=== PATIENT | female | born 2000 | race African-American/Black ===

== ENCOUNTER 2025-07-10 13:35 | Emergency (ER) | payer MEDICAID ==
[~2025-07-10] VITALS: Ht 160 cm; Wt 68.0 kg
[2025-07-10 14:06] VITALS: O2SAT 100
[2025-07-10 14:27] LABS: BASOPHILS % 0.7 % (0.0-2.0); EOSINOPHILS % 1.5 % (0.0-5.0); HEMATOCRIT. 35.6 % (36.0-48.0); HEMOGLOBIN. 11.8 g/dL (12.0-16.0); LYMPHOCYTES % 34.6 % (20.0-50.0); MEAN PLATELET VOLUME 7.3 fl (7.4-10.4); MONOCYTES % 7.1 % (2.0-8.0); NEUTROPHILS % 56.1 % (40.0-76.0); PLATELET 340 x1000/uL (130-400); RED BLOOD CELL COUNT 3.97 mill/uL (4.2-5.4); RED CELL DISTRIBUTION WIDTH 13.2 % (11.6-14.6)
[2025-07-10 14:42] LABS: CREATININE 0.7 mg/dL (0.6-1.0); HCG SCREEN POSITIVE
[2025-07-10 14:43] LABS: UREA NITROGEN BLOOD 6 mg/dL (9-23)
[2025-07-10 14:55] LABS: INR 1.0
[2025-07-10 19:17] VITALS: BP 122/77; PULSE 74; RESP 14; TEMP 36.8; O2SAT 100
== END 2025-07-10 19:23 | disposition home or self-care (01) ==
LOC: ER 13:35
DX: O46.91 Antepartum hemorrhage, unspecified, first trimester (principal); O00.90 Unspecified ectopic pregnancy without intrauterine pregnancy; Z3A.01 Less than 8 weeks gestation of pregnancy
CPT/HCPCS: 36415; 76801; 80048; 84702; 84703; 85025; 99284